=== PATIENT | female | born 1930 | race Caucasian/White ===

== ENCOUNTER 2017-07-13 05:23 | Day surgery (SDC) | payer MEDICARE ==
[2017-07-12 15:07] LABS: BASOPHILS 0.3 % (0-2); HEMATOCRIT 42.1 % (36.0-48.0); HEMOGLOBIN 13.4 g/dL (12-16); IMMATURE GRANULOCYTES 0.1 % (0-5); LYMPHOCYTES 24.7 % (15-50); MCH 29.8 pg (26.0-34.0); MCHC 31.8 g/dL (31.0-37.0); MCV 93.8 fL (80.0-100.0); MEAN PLATELET VOLUME 9.5 fL (7.4-10.4); MONOCYTES 8.1 % (2-11); NEUTROPHILS 62.8 % (40-80); PLATELET COUNT 184 10x3/uL (130-400); RBC 4.49 10x6/uL (4.00-5.40); RDW 14.6 % (11.5-14.5); WBC 7.2 10x3/uL (4.8-10.8)
[2017-07-12 15:21] LABS: APTT 28.6 SECONDS (22.8-39.4); INR 1.03 (0.85-1.17); PROTIME 13.1 SECONDS (11.6-15.0)
[2017-07-12 15:25] LABS: ANION GAP 9.7 mmol/L (8-16); CALCIUM 8.7 mg/dL (8.5-10.1); CARBON DIOXIDE 33.2 mmol/L (21.0-32.0); CREATININE - SERUM 0.9 mg/dL (0.6-1.3); POTASSIUM - SERUM 3.9 mmol/L (3.5-5.1)
[~2017-07-13] VITALS: Ht 152.4 cm; Wt 64.4 kg
--- NOTE | ~2017-07-13 | OP ---
PATIENT NAME: BASIM WILSON MEDICAL RECORD: [id number] :34 LOCATION:D.OPS ADMISSION DATE: SURGEON: DELVIN KRUGER MD DATE OF OPERATION: 07/13/2017 PREOPERATIVE DIAGNOSIS: Right carpal tunnel syndrome. POSTOPERATIVE DIAGNOSIS: Right carpal tunnel syndrome. PROCEDURE: Right carpal tunnel release. SURGEON: Delvin Kruger MD ANESTHESIA: Regional. INTRAOPERATIVE COMPLICATIONS: None. SUMMARY OF PATHOLOGIC FINDINGS: The patient has a very tight transverse carpal ligament consistent with preoperative diagnosis, EMGs and NCVS. OPERATIVE SUMMARY IN DETAIL: After obtaining the appropriate preoperative orthopedic consents as well as anesthetic consultation, evaluation and clearance, the patient was brought to the operating room and placed on the operating table in supine position. After adequate regional anesthesia had been administered, tourniquet was placed about the proximal aspect of the right upper extremity. Right upper extremity was then prepped and draped in routine sterile fashion. The arm was elevated and exsanguinated, tourniquet was inflated to 250 mmHg. An incision was made midline in line with the fourth metacarpal ray. This was taken down to the level of transverse carpal ligament, was identified. Median nerve was then identified and protected throughout the case under direct visualization. A Pigafe KnifeLight was then used to complete the entire carpal tunnel release. Having completed this, the wound was irrigated and closed with 4-0 Prolene in mattress style fashion. Sterile dressings were applied. Tourniquet was deflated. The patient was awakened and taken to the recovery room in stable condition. All final needle and sponge counts were correct. TRANSINT:[id number] Voice Confirmation ID: [id number] DOCUMENT ID: [id number] DELVIN KRUGER MD at 1641 CC: [id number] DICTATION DATE: 07/13/17 1217 [place] COORDINATOR: 07/13/17 1356 [facility] [place] [id number] [place] [id number]
[~2017-07-13 05:23] MED LIST: ARICEPT5 MG PO; COZAAR50 MG PO; DESERYL100 MG PO; LIPITOR40 MG PO; MOBIC7.5 MG PO; NEURONTIN 300300 MG PO; NORVASC5 MG PO; OXYBUTYNIN15 MG/BOTT PO; PROTONIX40 MG PO; PROZAC10 MG PO; SYNTHROID88 MCG PO
[2017-07-13 08:25] VITALS: BP 137/59; Ht 152.4 cm; Wt 64.4 kg
== END 2017-07-13 12:25 | disposition home or self-care (01) ==
LOC: D.OPS 05:23 → D.PAN 10:00 → D.OPS 12:25 → D.PAN 14:45 → D.OPS 14:45
PROVIDERS: Anesthesiology
DX: G56.01 Carpal tunnel syndrome, right upper limb (principal); Z01.812 Encounter for preprocedural laboratory examination

== ENCOUNTER 2017-09-07 05:38 | Day surgery (SDC) | payer MEDICARE ==
[2017-09-06 08:09] LABS: BASOPHILS 0.2 % (0-2); EOSINOPHILS 3.6 % (0-7); HEMATOCRIT 43.5 % (36.0-48.0); HEMOGLOBIN 13.8 g/dL (12-16); IMMATURE GRANULOCYTES 0.3 % (0-5); LYMPHOCYTES 26.6 % (15-50); MCH 29.5 pg (26.0-34.0); MCHC 31.7 g/dL (31.0-37.0); MCV 92.9 fL (80.0-100.0); NEUTROPHILS 61.3 % (40-80); PLATELET COUNT 162 10x3/uL (130-400); RBC 4.68 10x6/uL (4.00-5.40); RDW 12.9 % (11.5-14.5); WBC 6.1 10x3/uL (4.8-10.8)
[2017-09-06 08:25] LABS: ANION GAP 11.6 mmol/L (8-16); CALCIUM 8.8 mg/dL (8.5-10.1); CARBON DIOXIDE 32.2 mmol/L (21.0-32.0); CREATININE - SERUM 0.9 mg/dL (0.6-1.3); POTASSIUM - SERUM 3.8 mmol/L (3.5-5.1)
[~2017-09-07] VITALS: Ht 152.4 cm; Wt 65.3 kg
--- NOTE | ~2017-09-07 | OP ---
PATIENT NAME: BASIM WILSON MEDICAL RECORD: [id number] :34 LOCATION:D[facility]OPS ADMISSION DATE: SURGEON: DELVIN KRUGER MD DATE OF OPERATION: 09/07/2017 PREOPERATIVE DIAGNOSIS: Carpal tunnel syndrome of the left wrist. POSTOPERATIVE DIAGNOSIS: Carpal tunnel syndrome of the left wrist. PROCEDURE: Left carpal tunnel release. SURGEON: Delvin Kruegr MD ANESTHESIA: General. INTRAOPERATIVE COMPLICATIONS: None. SUMMARY OF PATHOLOGIC FINDINGS: The patient had a very tight transverse carpal ligament. OPERATIVE SUMMARY IN DETAIL: After obtaining the appropriate orthopedic surgery consent as well as anesthetic consultation, evaluation, and clearance, the patient was brought to the operating room and placed on the operating table in supine position. After adequate TIVA and regional anesthesia was established and tested, the patient's left upper extremity was prepped and draped in routine sterile fashion. The arm was elevated and exsanguinated, Esmarch bandage was used as a tourniquet as the IV had to be on the side. Midline incision made in line with the fourth metacarpal ray taken down. The transverse carpal ligament was identified and incised. The median nerve was identified and then under direct visualization, the entire transverse carpal ligament was released to the proximal wrist crease. Having completed this, the wound was irrigated and closed with 4-0 Prolene in interrupted and mattress style fashion. Sterile dressings were applied. Esmarch was removed. The patient was awakened and taken back to outpatient in stable condition. All final needle and sponge counts were correct. TRANSINT:[id number] Voice Confirmation ID: [id number] DOCUMENT ID: [id number] DELVIN KRUGER MD at 1535 CC: [id number] DICTATION DATE: 09/07/17 0830 NAPRAPATH: 09/07/17 1021 [facility] 09/07/17 [place] [address]
[2017-09-07 05:49] VITALS: BP 143/69; Ht 152.4 cm; Wt 65.3 kg
[2017-09-07] MEDS ORDERED: HYDROCODONE-APA1 TAB PO (08:28)
== END 2017-09-07 09:29 | disposition home or self-care (01) ==
LOC: D.OPS 05:38 → D.PAN 07:30 → D.OPS 07:30
PROVIDERS: Anesthesiology
DX: G56.02 Carpal tunnel syndrome, left upper limb (principal); E03.9 Hypothyroidism, unspecified; Z01.812 Encounter for preprocedural laboratory examination